=== PATIENT | male | born 1980 | race Caucasian/White ===

== ENCOUNTER 2016-12-20 09:59 | Emergency (ER) | payer SELFPAY ==
[~2016-12-20 09:59] MED LIST: ALPR1CON PO; CLIN150 PO; DOXY100T PO; OXYC30TA3 PO
--- NOTE | 2016-12-20 10:23 | PD ---
HPI Chief Complaint: Injury Time Seen by Provider: 10:14 Travel History International Travel<30 days: No Contact w/Intl Traveler<30days: No Traveled to known affect area: No History of Present Illness HPI 36yo M with no significant PMH presents to the ED with c/o left hand pain s/p getting slammed by a door an hour ago. Pain is mainly in 1st metacarpal phalange in volar aspect. Denies any other injuries. Denies any other complaints. PFSH Past Medical History Diminished Hearing: No Musculoskeletal: Yes ("BACK PROBLEMS" SEES DR FLOOD-SALENA PATEL) Past Surgical History Genitourinary Surgery: Yes ("SOME KIND OF BLADDER SURGERY A CHILD') Social History Alcohol Use: No Tobacco Use: Yes (1 PPD) Substance Use: Yes (POT OCCASIONALLY) Allergies-Medications (Allergen,Severity, Reaction): Coded Allergies: Penicillin (Verified Allergy, Unknown, 12/20/16) Reported Meds & Prescriptions Reported Meds & Active Scripts Active Review of Systems Except as stated in HPI: all other systems reviewed are Neg Physical Exam Narrative GENERAL: 36yo M not in distress. SKIN: Focused skin assessment warm/dry. HEAD: Atraumatic. Normocephalic. CARDIOVASCULAR: Regular rate and rhythm. No murmur appreciated. RESPIRATORY: No accessory muscle use. Clear to auscultation. Breath sounds equal bilaterally. GASTROINTESTINAL: Abdomen soft, non-tender, nondistended. MUSCULOSKELETAL: Left hand: +TTP volar aspect of proximal 1st metacarpal phalange. Radial pulse 2+. No scaphoid ttp. FROM in all digits. Pt has old abrasion on dorsum of left hand. Sensation intact. NEUROLOGICAL: Awake and alert. No obvious cranial nerve deficits. Motor grossly within normal limits. Normal speech. PSYCHIATRIC: Appropriate mood and affect; insight and judgment normal. Data Data Last Documented VS Vital Signs Date Time Temp Pulse Resp B/P Pulse Ox O2 Delivery O2 Flow Rate FiO2 12/20/16 11:26 18 Orders Hand, Limited (2vws) (12/20/16 ) Ibuprofen (Motrin) (12/20/16 10:30) MDM Medical Decision Making Medical Screen Exam Complete: Yes Emergency Medical Condition: Yes Interpretation(s) Last Impressions Hand X-Ray 12/20/16 0000 Signed Impressions: Service Date/Time: Friday, December 20, 2016 10:32 - CONCLUSION: Unremarkable study. Shan Enrique MD Differential Diagnosis Fracture vs. contusion Narrative Course 36yo M with left hand pain s/p slammed by a door today. Neurovascular intact. Xray left hand is unremarkable. Pt has no scaphoid tenderness. Pain is mainly in hypothenar eminence. Pain is likely from contusion from the door. Return precautions given. Diagnosis Primary Impression: Contusion Qualified Code: S60.222A - Contusion of left hand, initial encounter Patient Instructions: General Instructions Departure Forms: Tests/Procedures Additional Instructions: Please follow up with your PMD in 3-7 days. Return to the ED if symptoms worsen. Med/Other Pt SpecificInfo: Prescription(s) given Scripts Ibuprofen 600 Mg [id number] Mg PO Q8HR PRN (PAIN) #20 TAB Ref 0 Prov:Francisca Winter DO 12/20/16 Disposition: 01 DISCHARGE HOME Condition: Stable Francisca Winter DO Dec 20, 2016 10:23
[2016-12-20] MEDS ORDERED: IBUPROFEN 600 MG TAB PO ONE (10:30)
--- NOTE | 2016-12-20 11:13 | RADHPO ---
EXAM DATE/TIME: 12/20/2016 10:32 [facility] COMPARISON: No previous studies available for comparison. INDICATIONS : Left hand injury, caught between two objects. MEDICAL HISTORY : None. SURGICAL HISTORY : None. ENCOUNTER: Initial ACUITY: 1 day PAIN SCORE: 8/10 LOCATION: Left lateral hand FINDINGS: No definite fractures, or dislocations are identified. No definite lytic or sclerotic lesion is seen . CONCLUSION: Unremarkable study. Shan Enrique MD on December 20, 2016 at 11:00 Board Certified Radiologist. This report was verified electronically.
[2016-12-20 11:26] VITALS: RESP 18
[2016-12-20] MEDS ORDERED: IBUP-232 PO (11:36)
== END 2016-12-20 11:43 | disposition home or self-care (01) ==
LOC: PHEFT 09:59
DX: S60.222A Contusion of left hand, initial encounter (principal); F17.200 Nicotine dependence, unspecified, uncomplicated; Z87.39 Personal history of other diseases of the musculoskeletal system and connective tissue; W23.1XXA Caught, crushed, jammed, or pinched between stationary objects, initial encounter
CPT/HCPCS: 73120; 99283

== ENCOUNTER 2017-05-31 22:20 | Emergency (ER) | payer SELFPAY ==
[~2017-05-31] VITALS: Ht 182.9 cm; Wt 78.2 kg
[~2017-05-31 22:20] MED LIST changes: -ALPR1CON PO; -CLIN150 PO; -DOXY100T PO; +IBUP-232 PO; -OXYC30TA3 PO
[2017-05-31 22:26] VITALS: BP 133/75; PULSE 91; RESP 20; TEMP 100.7; O2SAT 94
[2017-05-31 23:00] VITALS: BP 130/70; PULSE 88; RESP 17; TEMP 100.7; O2SAT 97
[2017-05-31] MEDS ORDERED: SODIUM CHLORIDE 0.9% FLUSH 10 ML FLUSH IVF PRN (23:15)
[2017-05-31] MEDS ORDERED: ACETAMINOPHEN 325 MG TAB PO ONE (23:15)
[2017-05-31] MEDS ORDERED: SODIUM CHLOR 0.9% 1000 ML INJ 1,000 ML IV ONE (23:15)
[2017-05-31] MEDS ORDERED: methylPREDNISolone SOD SUCC 125 MG/2 ML VIAL IV PUSH ONE (23:15)
[2017-05-31] MEDS ORDERED: AZITHROMYCIN INJ 500 MG in SODIUM CHLOR 0.9% 250 ML INJ 250 ML IV ONE (23:15)
[2017-05-31] MEDS: RESP: ALBUTEROL 2.5 MG/3 ML NEB (SCH) INH (23:23)
[2017-05-31 23:25] VITALS: PULSE 80; RESP 14; O2SAT 97
--- NOTE | 2017-05-31 23:38 | RADRPT ---
EXAM DATE/TIME: 05/31/2017 23:28 [facility] COMPARISON: No previous studies available for comparison. INDICATIONS : Short of breath. MEDICAL HISTORY : Smoker. SURGICAL HISTORY : None. ENCOUNTER: Initial ACUITY: 4 - 6 days PAIN SCORE: 5/10 LOCATION: Left chest FINDINGS: A single view of the chest demonstrates the lungs to be symmetrically aerated without evidence of mas s, infiltrate or effusion. Peribronchial thickening present. The cardiomediastinal contours are unrem arkable. Osseous structures are intact. CONCLUSION: 1. Peribronchial thickening present without focal consolidation or effusion. Heart size normal. Marvin Joe MD on May 31, 2017 at 23:35 Board Certified Radiologist. This report was verified electronically.
[2017-05-31 23:50] LABS: AUTOMATED NEUTROPHIL # 7.2 TH/MM3 (1.8-7.7); BASOPHIL # 0.1 TH/MM3 (0-0.2); EOSINOPHIL # 0.5 TH/MM3 (0-0.4); EOSINOPHIL % 4.1 % (0.0-4.0); HEMATOCRIT 40.1 % (39.0-51.0); HEMO FLAGS DIFF FINAL; LYMPH % 26.7 % (9.0-44.0); LYMPHOCYTE # 3.1 TH/MM3 (1.0-4.8); MEAN CELL VOLUME 88.4 FL (80.0-100.0); MEAN CORPUSCULAR HEMOGLOBIN 29.3 PG (27.0-34.0); MEAN CORPUSCULAR HGB CONC 33.1 % (32.0-36.0); MONO % 7.2 % (0.0-8.0); PLATELET COUNT 247 TH/MM3 (150-450); RED BLOOD COUNT 4.54 MIL/MM3 (4.50-5.90); RED CELL DISTRIBUTION WIDTH 14.8 % (11.6-17.2); WHITE BLOOD COUNT 11.7 TH/MM3 (4.0-11.0)
[2017-05-31 23:58] LABS: CHLORIDE 99 MEQ/L (98-107); POTASSIUM 3.2 MEQ/L (3.5-5.1); SODIUM (NA) 135 MEQ/L (136-145)
[2017-06-01 00:01] LABS: ANION GAP 8 MEQ/L (5-15); BICARBONATE 28.1 MEQ/L (21.0-32.0); BLOOD UREA NITROGEN 15 MG/DL (7-18)
[2017-06-01 00:05] LABS: GLOMERULAR FILTRATION RATE 98 ML/MIN (>89)
[2017-06-01] MEDS ORDERED: POTASSIUM CHLORIDE 20 MEQ CONTROLLED RELEASE TAB PO ONE (00:30)
[2017-06-01] MEDS ORDERED: SODIUM CHLORID 0.9% 500 ML INJ 500 ML IV ONE (00:45)
[2017-06-01] MEDS ORDERED: RESP: ALBUTEROL 2.5 MG/IPRATROPIUM 0.5 MG NEB (SCH) NEB ONE (00:45)
--- NOTE | 2017-06-01 00:45 | PD ---
HPI Chief Complaint: Respiratory Distress Time Seen by Provider: 23:02 Travel History International Travel<30 days: No Contact w/Intl Traveler<30days: No Traveled to known affect area: No History of Present Illness HPI 36-year-old male presents to the emergency department by private transportation for complaint of shortness of breath and wheezing 5 days. No prior history of reactive airways disease or asthma or COPD. Patient does smoke cigarettes daily. Patient states symptoms are worsened and he has had subjective fever and chills. Patient states cough is productive of white to yellow sputum. Patient states he does have posttussive emesis. Patient denies any chest pain or abdominal pain except that associated with coughing when he is coughing. No hemoptysis. Patient denies any exposure to known allergens or chemicals. Patient reports he is otherwise in good health. Patient does admit to occasional substance use. PFSH Past Medical History Narrative Medical Childhood bladder surgery family history diabetes positive tobacco use positive marijuana use: Nursing notes reviewed Medical History: Denies Significant Hx Diabetes: Yes (FAMILY HX) Diminished Hearing: No Musculoskeletal: Yes ("BACK PROBLEMS" SEES DR [facility]OD[facility]) Tetanus Vaccination: > 5 Years Influenza Vaccination: No ?: Not Past Surgical History Surgical History: No Previous Surgery Genitourinary Surgery: Yes ("SOME KIND OF BLADDER SURGERY A CHILD') Social History Alcohol Use: No Tobacco Use: Yes Substance Use: Yes (MARIJUANA) Allergies-Medications (Allergen,Severity, Reaction): Coded Allergies: penicillin G (Unverified Allergy, Unknown, 04/15/17) Reported Meds & Prescriptions Reported Meds & Active Scripts Active Ventolin Hfa 18 GM Inh (Albuterol Sulfate) 90 Mcg/Act Aer 2 Puff INH Q4-6H PRN Medrol Dosepak (Methylprednisolone) 4 Mg Dspk 4 Mg PO DIRECTED Per Pharmacist direction Zithromax Z-Israel (Azithromycin) 250 Mg Dspk 250 Mg PO DIRECTED 500 MG (2 tabs) day 1, then 1 tab days 2-5. Ibuprofen 600 Mg Tab 600 Mg PO Q8HR PRN Review of Systems Except as stated in HPI: all other systems reviewed are Neg General / Constitutional: Positive: Fever, No: Chills HENT: Positive: Congestion Cardiovascular: No: Chest Pain or Discomfort Respiratory: Positive: Shortness of Breath, Wheezing, No: Hemoptysis, Stridor, Pleuritic Pain Gastrointestinal: Positive: Vomiting (posttussive emesis), No: Nausea Genitourinary: No: Dysuria Musculoskeletal: No: Myalgias, Arthralgias Skin: Positive Rash (chronic) Neurologic: No: Weakness Psychiatric: No: Anxiety Endocrine: No: Polydipsia Physical Exam Narrative GENERAL: Well-developed well-nourished male in no acute distress mild respiratory distress; no stridor no hoarseness; triage temperature 100.7F SKIN: Warm and dry. HEAD: Normocephalic. EYES: No scleral icterus. No injection or drainage. NECK: Supple, trachea midline. No JVD or lymphadenopathy. CARDIOVASCULAR: Regular rate and rhythm without murmurs, gallops, or rubs. RESPIRATORY: Breath sounds equal bilaterally diffuse wheezing. No accessory muscle use. GASTROINTESTINAL: Abdomen soft, non-tender, nondistended. MUSCULOSKELETAL: No cyanosis, or edema. BACK: Nontender without obvious deformity. No CVA tenderness. Data Data Last Documented VS Vital Signs Date Time Temp Pulse Resp B/P (MAP) Pulse Ox O2 Delivery O2 Flow Rate FiO2 06/01/17 01:27 98.6 85 15 136/74 (94) 97 05/31/17 23:25 Room Air Orders Orders Complete Blood Count With Diff (05/31/17 23:02) Basic Metabolic Panel (Bmp) (05/31/17 23:02) Troponin I (05/31/17 23:02) Blood Culture (05/31/17 23:02) Iv Access Insert/Monitor (05/31/17 23:02) Electrocardiogram (05/31/17 23:02) Ecg Monitoring (05/31/17 23:02) Oximetry (05/31/17 23:02) Oxygen Administration (05/31/17 23:02) Chest, Single Ap (05/31/17 23:02) Sodium Chloride 0.9% Flush (Ns Flush) (05/31/17 23:15) Methylprednisolone So Succ Inj (Solumedr (05/31/17 23:15) Lactic Acid (05/31/17 23:02) Azithromycin Inj (Zithromax Inj) (05/31/17 23:15) Acetaminophen (Tylenol) (05/31/17 23:15) Sodium Chlor 0.9% 1000 Ml Inj (Ns 1000 M (05/31/17 23:15) Albuterol Neb (Albuterol Neb) (05/31/17 23:15) Potassium Chloride (Kcl) (06/01/17 00:30) Albuterol-Ipratropium Neb (Duoneb Neb) (06/01/17 00:45) Sodium Chlorid 0.9% 500 Ml Inj (Ns 500 M (06/01/17 00:45) Labs Laboratory Tests Test 05/31/17 23:30 White Blood Count 11.7 TH/MM3 Red Blood Count 4.54 MIL/MM3 Hemoglobin 13.3 GM/DL Hematocrit 40.1 % Mean Corpuscular Volume 88.4 FL Mean Corpuscular Hemoglobin 29.3 PG Mean Corpuscular Hemoglobin Concent 33.1 % Red Cell Distribution Width 14.8 % Platelet Count 247 TH/MM3 Mean Platelet Volume 8.9 FL Neutrophils (%) (Auto) 61.0 % Lymphocytes (%) (Auto) 26.7 % Monocytes (%) (Auto) 7.2 % Eosinophils (%) (Auto) 4.1 % Basophils (%) (Auto) 1.0 % Neutrophils # (Auto) 7.2 TH/MM3 Lymphocytes # (Auto) 3.1 TH/MM3 Monocytes # (Auto) 0.8 TH/MM3 Eosinophils # (Auto) 0.5 TH/MM3 Basophils # (Auto) 0.1 TH/MM3 CBC Comment DIFF FINAL Differential Comment Blood Urea Nitrogen 15 MG/DL Creatinine 0.88 MG/DL Random Glucose 113 MG/DL Calcium Level 8.7 MG/DL Sodium Level 135 MEQ/L Potassium Level 3.2 MEQ/L Chloride Level 99 MEQ/L Carbon Dioxide Level 28.1 MEQ/L Anion Gap 8 MEQ/L Estimat Glomerular Filtration Rate 98 ML/MIN Lactic Acid Level 1.0 mmol/L Troponin I LESS THAN 0.02 NG/ML MDM Medical Decision Making Medical Screen Exam Complete: Yes Emergency Medical Condition: Yes Medical Record Reviewed: Yes Interpretation(s) Lactic acid: 1.0, not elevated Troponin I less than 0.02, not elevated EKG refuse by palpation Chest x-ray haziness right base CBC & BMP Diagram 05/31/17 23:30 Calcium Level 8.7 Vital Signs Date Time Temp Pulse Resp B/P (MAP) Pulse Ox O2 Delivery O2 Flow Rate FiO2 05/31/17 23:25 80 14 97 Room Air 05/31/17 22:59 94 Room Air 05/31/17 22:26 100.7 91 20 133/75 (94) 94 Differential Diagnosis Dyspnea, asthma/COPD, bronchitis, pneumonia, CHF, PE, reactive airways disease, pneumothorax Narrative Course 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 obtained specimens collected and sent for resulting patient placed on pulse oximeter patient administered albuterol neb treatments 2 Solu-Medrol 125 mg times one and azithromycin 500 mg IV piggyback 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 Diagnosis Primary Impression: Bronchitis Referrals: [facility] call for appointment Patient Instructions: General Instructions Additional Instructions: Increase fluid hydration Take acetaminophen/Tylenol every 4 hours for fever 100.4F or greater Use inhaler as prescribed Complete course of steroid and antibiotic Return to the emergency department for any concerns Med/Other Pt SpecificInfo: Prescription(s) given Scripts Albuterol 18 GM Inh (Ventolin Hfa 18 GM Inh) 90 Mcg/Act Aer 2 PUFF INH Q4-6H Y for SHORTNESS OF BREATH, #1 INHALER 0 Refills Prov: Migdalia Cornell MD 06/01/17 Methylprednisolone Dosepak (Medrol Dosepak) 4 Mg Dspk 4 MG PO DIRECTED, #1 DSPK 0 Refills Per Pharmacist direction Prov: Migdalia Cornell MD 06/01/17 Azithromycin (Zithromax Z-Israel) 250 Mg Dspk 250 MG PO DIRECTED for Infection, #1 DSPK 0 Refills 500 MG (2 tabs) day 1, then 1 tab days 2-5. Prov: Migdalia Cornell MD 06/01/17 Disposition: 01 DISCHARGE HOME Condition: Stable Migdalia Cornell MD Jun 01, 2017 00:44
[2017-06-01] MEDS ORDERED: MEDR4PAK PO (01:16)
[2017-06-01] MEDS ORDERED: VENTAER INH (01:16)
[2017-06-01] MEDS ORDERED: ZITHTAB PO (01:16)
[2017-06-01 01:27] VITALS: BP 136/74; TEMP 98.6
== END 2017-06-01 01:27 | disposition home or self-care (01) ==
LOC: PHED 22:20
DX: J40 Bronchitis, not specified as acute or chronic (principal); R06.2 Wheezing; D72.829 Elevated white blood cell count, unspecified; B95.8 Unspecified staphylococcus as the cause of diseases classified elsewhere; Z72.0 Tobacco use; Z87.39 Personal history of other diseases of the musculoskeletal system and connective tissue
CPT/HCPCS: 71010; 80048; 83605; 84484; 85025; 86403; 87040; 87077; 87186; 87205; 94640; 94664; 96365; 96375; 99285; J0456; J2930; J7050; J7613

== ENCOUNTER 2017-11-03 15:12 | Emergency (ER) | payer SELFPAY ==
[~2017-11-03] VITALS: Ht 182.9 cm; Wt 82.0 kg
[~2017-11-03 15:12] MED LIST changes: +MEDR4PAK PO; +VENTAER INH; +ZITHTAB PO
[2017-11-03 16:00] VITALS: BP 160/92; PULSE 64; RESP 16; TEMP 97.8; O2SAT 98
[2017-11-03] MEDS ORDERED: TRAM50TA PO (16:49)
[2017-11-03] MEDS ORDERED: MAGICADU2 SWISH-SWAL (16:49)
[2017-11-03] MEDS ORDERED: CLIN150C14 PO (16:49)
[2017-11-03] MEDS ORDERED: DICL75TA PO (16:49)
--- NOTE | 2017-11-03 16:55 | PD ---
HPI Chief Complaint: Oral / Dental Pain or Problem Time Seen by Provider: 16:43 Travel History International Travel<30 days: No Contact w/Intl Traveler<30days: No Traveled to known affect area: No History of Present Illness HPI 37-year-old male that presents to the ED for evaluation of dental pain. Per patient has left upper dental pain for this for 5 days. The patient has been sensitive for some time but didn't become more painful until last night. Per patient he has not seen a dentist for it. He states that he does have bad dentition throughout. No urinary or bowel movement issues. No fevers chills or sweats. Per patient has swelling. Per patient the pain is 8 out of 10. Allergies to penicillin. Has been seen anybody for this. No other medical issues. PFSH Past Medical History Medical History: Denies Significant Hx Diabetes: Yes (FAMILY HX) Diminished Hearing: No Musculoskeletal: Yes ("BACK PROBLEMS" SEES DR BEAN PATEL) Past Surgical History Genitourinary Surgery: Yes ("SOME KIND OF BLADDER SURGERY A CHILD') Social History Alcohol Use: No Tobacco Use: Yes (1PPD) Substance Use: Yes (MARIJUANA) Allergies-Medications (Allergen,Severity, Reaction): Coded Allergies: penicillin G (Unverified Allergy, Unknown, UNKNOWN- A CHILD, 11/03/17) Reported Meds & Prescriptions Reported Meds & Active Scripts Active Tramadol (Tramadol HCl) 50 Mg Tab 50 Mg PO Q6H PRN Magic Mouthwash Adult Liq (Multi-Ingredient Mouthwash/Gargle) 120 Ml Susp 5 Ml SWISH-SWAL ACHS Each 5mL contains: Nystatin 200,000units, Diphenhydramine 4.25mg, Viscous Lidocaine 10mg, Parra syrup 0.[address] (Diclofenac Sodium) 75 Mg Tabdr 75 Mg PO BID PRN Clindamycin (Clindamycin HCl) 150 Mg Cap 300 Mg PO Q8HR 10 Days Review of Systems Except as stated in HPI: all other systems reviewed are Neg Physical Exam Narrative GENERAL: SKIN: Warm and dry. HEAD: Atraumatic. Normocephalic. EYES: Pupils equal and round. No scleral icterus. No injection or drainage. ENT: No nasal bleeding or discharge. Mucous membranes pink and moist. Tongue is midline. No uvula deviation. Dental: Patient has bad dentition throughout most of the molars and for the most part except for a few teeth in the front he has complete erosion of the teeth. Patient does have reproducible pain on the left upper jaw. Patient does have some soft tissue swelling but no purulence. NECK: Trachea midline. No JVD. CARDIOVASCULAR: Regular rate and rhythm. RESPIRATORY: No accessory muscle use. Clear to auscultation. Breath sounds equal bilaterally. GASTROINTESTINAL: Abdomen soft, non-tender, nondistended. Hepatic and splenic margins not palpable. MUSCULOSKELETAL: Extremities without clubbing, cyanosis, or edema. No obvious deformities. NEUROLOGICAL: Awake and alert. No obvious cranial nerve deficits. Motor grossly within normal limits. Five out of 5 muscle strength in the arms and legs. Normal speech. PSYCHIATRIC: Appropriate mood and affect; insight and judgment normal. Data Data Last Documented VS Vital Signs Date Time Temp Pulse Resp B/P (MAP) Pulse Ox O2 Delivery O2 Flow Rate FiO2 11/03/17 16:00 97.8 64 16 160/92 (114) 98 Orders Orders Ed Discharge Order (11/03/17 16:47) MDM Medical Decision Making Medical Screen Exam Complete: Yes Emergency Medical Condition: Yes Medical Record Reviewed: Yes Differential Diagnosis Dentalgia versus abscess versus dental abscess Narrative Course 37-year-old male that presents to the ED for evaluation of dental pain. Patient was properly examined and was found to have signs and symptoms consistent appears to be dentalgia. Patient appears of infection. We'll treat with antibiotics, diclofenac sodium, edema or signs and normal. Told to apply ice or warm compresses. Close follow with PCP given dental referral. See ED worsening symptoms. Diagnosis Primary Impression: Dental infection Patient Instructions: General Instructions Additional Instructions: Take medications as prescribed. Follow-up with PCP. See ED for any worsening symptoms. Do not drink or drive while taking pain medication. Apply iceas needed for pain Med/Other Pt SpecificInfo: Prescription(s) given Scripts Tramadol (Tramadol) 50 Mg Tab 50 MG PO Q6H Y for PAIN, #10 TAB 0 Refills Prov: Beau Jacobson MD 11/03/17 Ythoozzc-Wxxrmoosvhvczmy-Tvoaozjnv Liq (Magic Mouthwash Adult Liq) 120 Ml Susp 5 ML SWISH-SWAL ACHS for Mouth sores, #120 ML 0 Refills Each 5mL contains: Nystatin 200,000units, Diphenhydramine 4.25mg, Viscous Lidocaine 10mg, Parra syrup 0.8 mL Prov: Beua Jacobson MD 11/03/[address] (Diclofenac Sodium DR) 75 Mg Tabdr 75 MG PO BID Y for PAIN SCALE 1 TO 10, #20 TAB 0 Refills Prov: Beau Jacobson MD 11/03/17 Clindamycin (Clindamycin) 150 Mg Cap 300 MG PO Q8HR for Infection for 10 Days, CAP 0 Refills Prov: Beau Jacobson MD 11/03/17 Disposition: 01 DISCHARGE HOME Condition: Mika Everett Nov 03, 2017 16:55
== END 2017-11-03 17:08 | disposition home or self-care (01) ==
LOC: PHEFT 15:12
DX: K04.7 Periapical abscess without sinus (principal); F17.200 Nicotine dependence, unspecified, uncomplicated; Z88.0 Allergy status to penicillin; Z79.899 Other long term (current) drug therapy
CPT/HCPCS: 99283